=== PATIENT | female | born 1930 | race Caucasian/White ===

== ENCOUNTER 2018-06-09 20:03 | Emergency (ER) | payer OTHER ==
[~2018-06-09] VITALS: Ht 154.9 cm; Wt 57.1 kg
[~2018-06-09 20:03] MED LIST: AID; ANTI-DIARRHEA2 MG PO; ASPIRIN81 M2 PO; BILBERRY1 EAC1 PO; BYSTOLIC 5 MG5 M1 PO; CALCIUM PO; CARVEDILOL3.125 MG PO; CATAPRES-TTS 10.1 MG TOP; CATAPRES0.2 MG PO; CLONIDINE0.1 PO; COD LIVER OIL1 EACH PO; COENZYME Q1050 M1 PO; COMPLETE M9 MG/15 ML PO; CYTOMEL 5MCG TA5 MC1 PO; ESTROVEN REGU400 MCG PO; FISH OIL 1,0001 EAC5 PO; GINKGO BILOBA40 M1; GLUCOSAMINE-CH1 EA33 PO; HAWTHORN BERRY500 MG; HYDROCHLOROTHIA25 M1 PO; HYDROCHLOROTHIA25 M2 PO; K-DUR 20 MEQ T20 MEQ PO; LEVOTHYROXIN0.075 MG PO; LUTEIN20 MG PO; MACROBID 100 M100 M1 PO; MECLIZINE HCL12.5 MG PO; MULTIVITAM9 MG/15 ML PO; MULTIVITAMINS1 EAC7 PO; NORVASC 2.5 MG2.5 M1 PO; NORVASC 5 MG TAB5 MG PO; ODORLESS GARLI500 MG PO; ONDANSETRON HCL4 M2 PO; OSTEO BI-FLEX1 EAC1; OSTEO BI-FLEX1 EAC1 PO; PROTANDIN PO; SYNTHROID25 MCG PO; TYLENOL325 MG PO; VITAMIN D1000 UNI1 PO; XANAX 0.25 MG0.25 MG PO; ZOFRAN ODT4 MG PO; [UNRECOGNIZED DRUG - OTHER] PO
[2018-06-09] MEDS ORDERED: VITAMIN D2000 UNIT PO (21:47)
[2018-06-09] MEDS ORDERED: GINKGO BILOBA30 MG PO (21:48)
[2018-06-09] MEDS ORDERED: HAIR SKIN NAIL1 EACH PO (21:49)
[2018-06-09] MEDS ORDERED: GARLIC1000 MG PO (21:49)
[2018-06-09 21:58] VITALS: BP 180/70
== END 2018-06-09 21:59 | disposition home or self-care (01) ==
LOC: M.ERS 20:03
DX: S81.011A Laceration without foreign body, right knee, initial encounter (principal); S51.812A Laceration without foreign body of left forearm, initial encounter; I10 Essential (primary) hypertension; E03.9 Hypothyroidism, unspecified; Z85.828 Personal history of other malignant neoplasm of skin; Z90.710 Acquired absence of both cervix and uterus; W10.8XXA Fall (on) (from) other stairs and steps, initial encounter; Y93.89 Activity, other specified; Y92.89 Other specified places as the place of occurrence of the external cause; Y99.8 Other external cause status